=== PATIENT | male | born 1980 | race Caucasian/White ===

== ENCOUNTER 2017-10-30 09:16 | Emergency (ER) | payer OTHER ==
--- NOTE | 2017-10-30 09:26 | EDM.PDOC ---
ED HPI GENERAL MEDICAL PROBLEM - General Chief Complaint: ENT Problem Stated Complaint: SORE THROAT, CONGESTION Time Seen by Provider: 10/30/17 09:24 Source of Information: Reports: Patient, RN, RN Notes Reviewed History Limitations: Reports: No Limitations - History of Present Illness INITIAL COMMENTS - FREE TEXT/NARRATIVE: C/O sore throat x3 days. Pt's son tested positive for strep throat about 10 days ago. Admits to fever sensations, but his thermometer is broke. Reports mild dry cough x1 week. Duration: Constant Location: Reports: Other (throat) Quality: Reports: Ache Severity: Moderate Improves with: Reports: None Worsens with: Reports: Other (swallowing) Associated Symptoms: Reports: No Other Symptoms Throat Pain Score (Numeric/FACES): 5 - Related Data Allergies Allergy/AdvReac Type Severity Reaction Status Date / Time No Known Allergies Allergy Verified 10/30/17 10:18 Home Meds: Home Meds . [No Known Home Meds] 10/30/17 [History] Past Medical History - Past Health History Medical/Surgical History: Denies Medical/Surgical History Social & Family History - Family History Family Medical History: Noncontributory - Living Situation & Occupation Living situation: Reports: with Family Occupation: Employed ED ROS ENT - Review of Systems Review Of Systems: ROS reveals no pertinent complaints other than HPI. ED EXAM, ENT - Physical Exam Exam: See Below Exam Limited By: No Limitations General Appearance: Alert, WD/WN, No Apparent Distress Ears: Normal External Exam, Normal Canal, Hearing Grossly Normal, Normal TMs Nose: Nasal Discharge (mild-mod. congestion) Mouth/Throat: Normal Inspection, Normal Gums, Normal Lips, Normal Oropharynx, Normal Teeth, Pharyngeal Erythema, Tonsillar Erythema, Tonsillar Swelling. No: Throat Swelling, Tongue Swelling, Tonsillar Exudates, Uvular Deviation, Uvular Edema Head: Atraumatic, Normocephalic Neck: Full Range of Motion, Other (shoddy cervical lymphadenopathy, no nuchal rigidity) Respiratory/Chest: No Respiratory Distress Cardiovascular: Normal Peripheral Pulses, Regular Rate, Rhythm, No Edema, No Gallop, No JVD, No Murmur, No Rub GI/Abdominal: Normal Bowel Sounds, Soft, Non-Tender, No Distention Back: Normal Inspection Extremities: Normal Inspection, Non-Tender. No: Joint Swelling Neurological: Alert, Oriented, CN II-XII Intact, Normal Cognition, Normal Gait, No Motor/Sensory Deficits Psychiatric: Normal Affect, Normal Mood Skin: Warm, Dry, Intact, Normal Color, No Rash Course - Vital Signs Last Recorded V/S: Last Vital Signs Temp 36.6 C 10/30/17 09:28 Pulse 88 10/30/17 09:28 Resp 16 10/30/17 09:28 BP 123/89 10/30/17 09:28 Pulse Ox 99 10/30/17 09:28 - Orders/Labs/Meds Orders: Active Orders 24 hr Category Date Time Status CULTURE STREP A CONFIRMATION [RM] Stat Lab 10/30/17 09:25 Results STREP SCRN A RAPID W CULT CONF [RM] Stat Lab 10/30/17 09:25 Results Meds: Medications Discontinued Medications Generic Name Dose Route Start Last Admin Trade Name Toñoq PRN Reason Stop Dose Admin Amoxicillin 500 mg 10/30/17 10:11 10/30/17 10:18 Amoxil PO 10/30/17 10:12 500 mg ONETIME ONE Administration Departure - Departure Time of Disposition: 10:13 Disposition: Home, Self-Care 01 Condition: Good Clinical Impression: Tonsillitis, Strep throat exposure - Discharge Information Instructions: Tonsillitis, Vrit-af-Lbdg Forms: ED Department Discharge Additional Instructions: Rx: Amoxicillin 500mg Rx: Prednisone 20mg *Take with a meal. Frequent saltwater gargle until improved. Follow up in clinic if not improving in 3 to 4 days. - My Orders Last 24 Hours: My Active Orders 10/30/17 09:25 CULTURE STREP A CONFIRMATION [RM] Stat STREP SCRN A RAPID W CULT CONF [RM] Stat - Assessment/Plan Last 24 Hours: My Active Orders 10/30/17 09:25 CULTURE STREP A CONFIRMATION [RM] Stat STREP SCRN A RAPID W CULT CONF [RM] Stat
[2017-10-30] MEDS ORDERED: Amoxicillin 500 MG Cap PO ONE (10:11)
== END 2017-10-30 10:24 | disposition home or self-care (01) ==
LOC: DL.ED 09:16
DX: J03.90 Acute tonsillitis, unspecified (principal); Z20.818 Contact with and (suspected) exposure to other bacterial communicable diseases
CPT/HCPCS: 87081; 87430; 99283; A9270